=== PATIENT | female | born 1960 | race Caucasian/White ===

== ENCOUNTER 2023-04-30 14:35 | Outpatient (REF) | payer MEDICAID, SELFPAY ==
--- NOTE | 2023-04-29 11:30 | PAPFT_PTH ---
PATIENT: Meet Mckeon LOC: [facility] U#:[id number] AGE/SX: 63/F ROOM: RE04/30/[address]: Anisa Hu : 1960 BED: DIS: 04/30/2023 SPEC #: [id number] RECD: 04/30/23 17:21 STATUS: BRITTANY RERachael #: [id number] ANAIS: 04/29/23 11:[address]: Anisa Hu DEPT: [facility] Cytology RECD BY: Eda Dennison Tissues: 1 - CX/ENDOCX FOR PAP SMEARS Procedures: PAP THIN PREP/[facility] Screening HPV DNA PROBE Comments: [id number] (CHLAMYDIA/GC)
[2023-05-01 13:15] LABS: Chlamydia Result Negative (Negative); GC Result Negative (Negative)
== END 2023-04-30 14:36 | disposition home or self-care (01) ==
LOC: LBN 14:35
PROVIDERS: PCP Naturopath; Visit Provider Naturopath
DX: Z11.3 Encounter for screening for infections with a predominantly sexual mode of transmission (principal); Z12.4 Encounter for screening for malignant neoplasm of cervix; R87.610 Atypical squamous cells of undetermined significance on cytologic smear of cervix (ASC-US); Z11.51 Encounter for screening for human papillomavirus (HPV)
CPT/HCPCS: 87491; 87591; 88142; 87624

== ENCOUNTER 2023-09-13 14:50 | Outpatient (REF) | payer MEDICAID, SELFPAY ==
--- NOTE | 2023-09-13 10:30 | PAPFT_PTH ---
PATIENT: Meet Mckeon LOC: [facility] U#:[id number] AGE/SX: 63/F ROOM: RE09/13/[address]: Anisa Hu : 1960 BED: DIS: 09/13/2023 SPEC #: [id number] RECD: 09/13/23 17:21 STATUS: BRITTANY RERachael #: [id number] ANAIS: 09/13/23 10:[address]: Anisa Hu DEPT: [facility] Cytology RECD BY: Eda Dennison Tissues: 1 - CX/ENDOCX FOR PAP SMEARS Procedures: PAP THIN PREP/[facility] Screening Comments: [id number]
[2023-09-13 16:00] LABS: Bilirubin Negative (Negative); Blood Trace-intact (Negative); Clarity Clear (Clear); Glucose Negative (Negative); Ketones Negative (Negative); Leukocyte Esterase Moderate (Negative); Nitrite Negative (Negative); Specific Gravity 1.015 (1.005-1.025); Urobilinogen 0.2 mg/dL (Up to 0.2); pH 6.5 (5-8)
[2023-09-13 16:14] LABS: RBC 0-2 HPF (0-2)
[2023-09-13 16:15] LABS: Bacteria Many HPF (Negative); C & S Indicated? Yes; Casts Negative LPF (Negative); Crystals Negative HPF (Negative); Epithelial Cells Few HPF (Negative); Mucus Negative (Negative)
== END 2023-09-13 14:51 | disposition home or self-care (01) ==
LOC: LBN 14:50
PROVIDERS: PCP Naturopath; Visit Provider Naturopath
DX: R35.0 Frequency of micturition (principal); Z12.4 Encounter for screening for malignant neoplasm of cervix; Z01.419 Encounter for gynecological examination (general) (routine) without abnormal findings; R87.619 Unspecified abnormal cytological findings in specimens from cervix uteri
CPT/HCPCS: 87077; 88142; 81003; 81015; 87086; 87186